=== PATIENT | female | born 1950 | race Caucasian/White ===

== ENCOUNTER → 2018-01-26 | Outpatient (CLI) | payer OTHER ==
[~2018-01-26] VITALS: Ht 167.6 cm; Wt 62.6 kg
[~2018-01-26] MED LIST: ARMOUR THYROID15 M1 PO; DHEA50 M1 PO; ESTRADIOL1 EA10 TRANSDERM; FLEXERIL PO; HYDROCODONE-AP1 EAC6 PO; HYDROXYCHLOROQ200 M1 PO; MOBIC15 MG PO; NEURONTIN 300300 M1 PO; PROGESTERONE100 MG PO; VOGELXO; [UNRECOGNIZED DRUG - OTHER] PO
--- NOTE | ~2018-01-26 | HPC ---
[facility] [address] [place] [place] [address] PAIN MANAGEMENT CONSULTATION Name: AIRAM ARNDT Luis Room #: REG [facility] LilianaDiana#: [id number] Admission: 01/26/18 Attend Phys: Amarjit Vergara DO Discharge: Date of : 46 Report #: [id number] THIS REPORT FOR: //name// CC: ADRIANA Peterson MD Physician staff Amarjit Vergara DATE OF SERVICE: 01/26/2018 The patient is a very pleasant 67-year-old female seen in consultation at the request of Dr. Peterson for assistance with management of acute right lumbar radicular pain. The patient notes the pain began without antecedent trauma and overuse. Started with spasm pain in the back, buttock and leg, has progressed rapidly to the point that she is unable to bear weight on the right leg. Significantly impacted functional status. She has subjective weakness in the right leg, pain in the posterior lateral aspect of the thigh down into the calf and foot. She has paresthesia in the foot. She denies saddle anesthesia and denies bowel or bladder continence changes. She has tried a Medrol Dosepak, chiropractic manipulation and massage with no efficacy. She was on meloxicam pre-dating this for some osteoarthritis, has tried Flexeril and hydrocodone with really no significant improvement in functional status. Notes pain is exacerbated with any and all weightbearing. Heat has helped a little. She notes stabbing, cramping and aching sensation that she rates anywhere from a 5-10 on a VAS. REVIEW OF SYSTEMS: Complete review of systems is attached to the chart and gone over with the patient. She does not smoke or drink alcohol to excess. History of osteoarthritis, currently takes hydroxychloroquine and meloxicam. Takes female hormone replacements. Hypothyroidism, treated with Synthroid. She has been on gabapentin, hydrocodone and Flexeril for current chief complaint with really minimal efficacy. The patient has had a hysterectomy in the past. Remaining review of systems is noncontributory. The patient is a self-employed artist, primarily works with oils. Pain impact score is quite high, scoring 63/70. PHYSICAL EXAMINATION: Reveals a 5 feet 6 inches, 138 pounds female, BMI is 22.3 kilograms per meter squared. Blood pressure is 126/65, pulse is 88, respirations 16. She is alert and oriented to person, place, and time, judged to be a reasonable historian. Pupils are equal and reactive to light and accommodation. Extraocular muscles are intact. There is no nystagmus, lateral gaze deviation. Thyroid is unremarkable. Cervical [place] [address] PAIN MANAGEMENT CONSULTATION Name: HAIRAIRAM Room #: REG Shaista Richardson#: [id number] Admission: 01/26/18 Attend Phys: Amarjit Vergara DO Discharge: Date of : 46 Report #: [id number] Upper extremity strength is preserved. Heart is regular and rhythmical without murmur. Lungs are clear to auscultation. Abdomen is benign. She rises from the chair with assistance, markedly antalgic gait. Unable to bear weight on the right leg. Right dorsiflexion and right lower extremity extension strength is significantly diminished about 2-3/5, hip flexion is about 3/5 on the right. Plantar flexion and lower extremity flexion is 3-4/5. The left leg is much stronger at 4/5 to all muscle groups tested. Patellar reflexes absent on the right and 1/4 on the left with isometric contraction. Achilles reflexes are diminished, but symmetric. Grossly positive straight leg raise at 30 degrees on the left. Skin integument notes ecchymosis about the left hand dorsum aspect and antecubital fossa compatible with prior IV infiltration during her MRI. Otherwise, skin integument is intact. MRI from 01/21/2018 does note dextroscoliosis of the lumbar spine, L2-L3 shows retrolisthesis with some mild to moderate neural foraminal narrowing, L3-L4 notes right-sided neural foraminal narrowing, mild to moderate on the left. Primary pathology I believe is at L4-L5 where she has moderate to advanced right neural foraminal narrowing, bilateral facet arthropathy with ligamentum flavum hypertrophy. L5-S1 does note some bilateral facet arthropathy as well. ASSESSMENT: Symptomatic lumbar radiculopathy with acute right L4 radicular pain pattern. RECOMMENDATIONS: 1. Continue meloxicam. 2. I did offer the patient samples of Movantik for some opiate-induced constipation secondary to the hydrocodone. 3. Epidural injection under fluoroscopy today at L4-L5. 4. Follow up in 2 weeks for reevaluation. Consideration for repeat injection if indicated clinically. Thank you for allowing me to participate in this patient's care. I will keep you abreast of her progress. PROCEDURE: Lumbar epidural injection under fluoroscopy. PROCEDURE NOTE: After both written and informed consent to include risk of spinal cord damage, increased pain, weakness and dural puncture, the patient was taken to the fluoroscopy suite, placed in the prone position. After sterile prep and drape, a skin wheal with lidocaine was raised. A 22-gauge epidural Tuohy needle was inserted in the midline at L4-L5 with good loss to resistance. Negative aspiration for cerebrospinal fluid or blood was noted. Then 1 mL of Omnipaque under biplanar fluoroscopy showed good spread within the epidural space. This was followed with 80 mg of triamcinolone plus 1 mL of 1.5% preservative-free Xylocaine, 0.5 mL Xylocaine was then injected to flush the [facility] [address] [place] [address] PAIN MANAGEMENT CONSULTATION Name: AIRAM ARNDT Room #: REG [facility] Dylan#: [id number] Admission: 01/26/18 Attend Phys: Amarjit Vergara DO Discharge: Date of : 46 Report #: [id number] needle; it was removed. The patient was monitored for an appropriate period of time and discharged in good and stable condition. <ELECTRONICALLY SIGNED> By: Amarjit Vergara DO 01/26/18 1346 [id number] Amarjit Vergara DO /nt
[2018-01-26 09:57] VITALS: BP 126/65
== END | disposition home or self-care (01) ==
LOC: PAIN 06:37
DX: M54.16 Radiculopathy, lumbar region (principal); G89.29 Other chronic pain; M19.90 Unspecified osteoarthritis, unspecified site; E03.9 Hypothyroidism, unspecified; Z79.891 Long term (current) use of opiate analgesic; Z98.890 Other specified postprocedural states; Z90.710 Acquired absence of both cervix and uterus; Z79.899 Other long term (current) drug therapy

== ENCOUNTER → 2018-02-09 | Outpatient (CLI) | payer OTHER ==
[~2018-02-09] VITALS: Ht 167.6 cm; Wt 63.3 kg
--- NOTE | ~2018-02-09 | HPC ---
[facility] [address] [address] PAIN MANAGEMENT CONSULTATION Name: HAIRAIRAM [id number] Admission: 02/09/18 Attend Phys: Amarjit Vergara DO Discharge: Date of : 46 Report #: [id number] THIS REPORT FOR: //name// CC: ADRIANA DUARTE Physician staff Amarjit Vergara The patient is a 67-year-old female, seen in consultation on 01/26/2018, diagnosed with symptomatic lumbar radiculopathy, given a single epidural injection at that time. Returns to pain clinic today noting some 85% improvement in baseline pain. Radicular back component is improved, though she still has some right calf and hamstring pulling sensation and ongoing paresthesia in the right foot. She uses a cane to help with balance and for "security." She has not fallen in the last 3 months. PHYSICAL EXAMINATION: Otherwise relatively unchanged, 67-year-old female, BMI is 22.5 kilograms per meter squared. Blood pressure 121/81, pulse 81, respirations are 14. Rises from chair using armrest. Modestly antalgic gait. Still has modestly positive straight leg raise on the right. Lower extremity strength seems to be improving. Subjective paresthesia in the right foot. ASSESSMENT: Symptomatic lumbar radiculopathy, incremental improvement following 1 epidural injection. RECOMMENDATIONS: 1. Repeat lumbar epidural injection under fluoroscopy today. 2. Follow up in 3-4 weeks for reevaluation, cancel if doing well. PROCEDURE: Midline epidural injection under fluoroscopy. PROCEDURE NOTE: After both written and informed consent to include risk of spinal cord damage, increased pain, weakness and dural puncture, the patient was taken to the fluoroscopy suite, placed in the prone position. After sterile prep and drape, a skin wheal with lidocaine was raised. A 22-gauge epidural Tuohy needle was inserted in the midline at L4-L5 with good loss to resistance. Negative aspiration for cerebrospinal fluid or blood was noted. Then 1 mL of Omnipaque under biplanar fluoroscopy showed good spread within the epidural space. This was followed with 80 mg of triamcinolone plus 1 mL of 1.5% preservative-free Xylocaine, 0.5 mL Xylocaine was then injected to flush the needle; it was removed. The patient was monitored for an appropriate period of time and discharged in good and stable condition. <ELECTRONICALLY SIGNED> By: Amarjit Vergara DO 02/11/18 [id number] Amarjit Vergara DO /nt
[2018-02-09 09:32] VITALS: BP 131/81
[2018-02-09 09:34] VITALS: BP 131/81
== END | disposition home or self-care (01) ==
LOC: PAIN 07:55
DX: M54.16 Radiculopathy, lumbar region (principal); G89.29 Other chronic pain; Z98.890 Other specified postprocedural states; Z79.899 Other long term (current) drug therapy